=== PATIENT | male | born 1960 | race African-American/Black ===

== ENCOUNTER 2018-12-27 20:58 | Emergency (ER) | payer BC, OTHER ==
--- NOTE | 2018-12-27 21:06 | ED Physician Documentation ---
History of Present Illness - Stated complaint Stated Complaint: LOWER BACK PX - History obtained from History obtained from: Patient - Additonal information Additional information: Patient is a 58-year-old male with history of prostate issues currently awaiting further treatment with radiation presenting with rectal fullness and pain over the past 3-4 days. Patient reports decreased bowel movements and if experiencing a bowel movement, describes it as hard and small. Patient states he has the urge to have a bowel movement, but is struggling to do so. Patient denies actual flank or back pain, abdominal pain, fever, vomiting, urinary changes, as well as any changes to testicles or penis. Patient does admit to nausea.Patient otherwise denies any improving or worsening factors to his symptoms. Review of Systems Constitutional: denies: Fever GI: reports: Constipation. denies: Abdominal Pain PD PAST MEDICAL HISTORY - Past Medical History : Benign prostate hypertrophy - Past Surgical History Past Surgical History: No - Present Medications Home Medications: Ambulatory Orders Medication Instructions Recorded Confirmed Ciprofloxacin [Cipro] 500 mg PO BID #20 tablet 04/02/13 - Allergies Allergies/Adverse Reactions: Allergies Allergy/AdvReac Type Severity Reaction Status Date / Time No Known Drug Allergies Allergy Verified 04/02/13 14:16 - Social History Does the pt smoke?: No Smoking Status: Never smoker Does the pt drink ETOH?: No Does the pt have substance abuse?: No PD ED PE NORMAL - General General: Alert and oriented X 3, No acute distress, Well developed/nourished - HEENT HEENT: Atraumatic, Moist mucous membranes - Cardiac Cardiac: RRR, No murmur - Respiratory Respiratory: No respiratory distress, Clear bilaterally - Abdomen Abdomen: Normal bowel sounds, Soft, Non tender, Non distended - Rectal Rectal: Other (External rectal exam rather unremarkable except for a extremely small non-erythematous, non-thrombosed hemorrhoid that is not tender with palpation. No evidence of anal tears, fissures, or fistulas.No palpable tenderness to rectum, gluteal cleft, or buttocks.) - Back Back: No spinal TTP, Other (No paraspinal muscle tenderness or spasm present.) - Derm Derm: Normal color, Warm and dry, No rash - Neuro Neuro: Alert and oriented X 3, No motor deficit, No sensory deficit - Psych Psych: Normal mood, Normal affect Results - Vitals Vitals: Vital Signs - 24 hr 12/27/18 21:09 Temperature 36.6 C Heart Rate 68 Respiratory 24 Rate Blood Pressure 173/88 H O2 Saturation 99 Oxygen O2 Source Room air PD MEDICAL DECISION MAKING - ED course Complexity details: reviewed results, re-evaluated patient, considered differential, d/w patient, d/w family ED course: Feel the patient's complaints are likely due to heavy stool burden that is causing the sensation of pain and pressure to the rectal area. Also had concern for hemorrhoid, which was present on exam, however, did not appear to be inflamed, clotted, or causing pain. Additionally, did not find evidence of anal tear, fissure, or fistula. Patient does have history of enlarged prostate and is currently awaiting further treatment for prostate issues. Feel that prostate could be contributing to his fullness or pressure sensation. Although, he absolutely denies any penile, testicle, urinary changes as well as any suprapubic or flank tenderness. Given his lack of other abdominal, flank, back pain, do not have high suspicion for renal disease including pyelonephritis or nephrolithiasis, as well as have low suspicion for other intra-abdominal pathology including diverticulitis, small bowel obstruction, appendicitis, AAA, intra-abdominal abscess, but considered. Patient did not have evidence of bony tenderness or paraspinal muscular tenderness to indicate low back sprain or other injury including spinal or spinal cord injury. Discussed likely etiology with patient and his and agreed to obtain x-ray to further evaluate for stool burden. Plain film returned without evidence of significant stool burden, as well as no evidence of free air, obstruction, or other acute pathology. Discussed findings with patient. At this time, do not feel he necessarily requires other invasive testing or further imaging, but I do feel it is worth trying to move his bowels to see if this relieves his complaints. Currently, he is most comfortable with taking medications at home. Plan to provide magnesium citrate for home, as well as discussed nunw-awp-myvarxm options including suppositories and enemas. Finally, discussed return precautions and close follow-up. Patient and voiced understanding and are comfortable with discharge plan. Departure - Departure Disposition: Home, Self Care Clinical Impression: Rectal pain Condition: Good Follow-Up: your,doctor [Other] - Within 3 Days Comments: Please take magnesium citrate as prescribed at home to help induce bowel movement. May also use elzo-lah-tqfvxbz medications such as docusate, MiraLAX, as well as enemas or suppositories to help induce bowel movement. Recommend hydration during this time as you may lose significant fluid from diarrhea. Also recommend healthy diet and follow-up with primary care physician in the next 2-3 days. If you experience worsening pain, rectal bleeding, abdominal pain, vomiting, fever, or other concerns, please return to ED immediately.
--- NOTE | 2018-12-27 22:40 | XRAY Report ---
Reason: constipated, lower rectal pain Procedure Date: 12/27/2018 Accession Number: [id number] / [id number] Procedure: XR - Abdomen 2 View X-Ray CPT Code: 52995 FULL RESULT: EXAM: ABDOMEN RADIOGRAPHY EXAM DATE: 12/27/2018 10:23 PM. CLINICAL HISTORY: Constipated. Lower rectal pain. COMPARISON: None. TECHNIQUE: 2 views. FINDINGS: Lung Bases: Unremarkable. Bowel Gas Pattern: Within normal limits. No dilated loops or abnormal fluid levels. No excessive stool. Free Air: None. Other: No soft tissue calcifications. IMPRESSION: No bowel obstruction, free air, or excessive stool. RADIA
[2018-12-27] MEDS ORDERED: MAGNESIUM CITRATE 296 ML BOTTLE PO STA (22:49)
[2018-12-27 23:07] VITALS: BP 150/84
== END 2018-12-27 23:05 | disposition home or self-care (01) ==
LOC: ED 20:58
DX: K62.89 Other specified diseases of anus and rectum (principal); K64.8 Other hemorrhoids; N40.0 Benign prostatic hyperplasia without lower urinary tract symptoms
CPT/HCPCS: 74019; 99283; A9270

== ENCOUNTER 2019-04-27 08:00 | Outpatient (CLI) | payer BC, OTHER ==
[2019-04-27 19:28] LABS: BILIRUBIN,URINE NEGATIVE (NEGATIVE); GLUCOSE, URINE (UA) NEGATIVE (NEGATIVE); KETONES,URINE (UA) NEGATIVE (NEGATIVE); LEUKOCYTE ESTERASE, URINE NEGATIVE (NEGATIVE); NITRITE,URINE NEGATIVE (NEGATIVE); OCCULT BLOOD,URINE TRACE-INTA (NEGATIVE); PROTEIN,URINE NEGATIVE (NEGATIVE); UROBILINOGEN,URINE 0.2 (NORMAL) E.U./dL (NORMAL)
[2019-04-27 19:36] LABS: BACTERIA,URINE None Seen /HPF (None Seen); CLARITY,URINE CLEAR (CLEAR); CRYSTALS,URINE 11-25 Ca Oxalate /LPF; MUCUS,URINE Few Strands; RBC,URINE 0-5 /HPF (0-5); SQUAMOUS EPITHELIAL CELL,UR FEW Squamous (<= Few)
== END 2019-04-27 23:59 | disposition home or self-care (01) ==
LOC: LAB.R 08:00
PROVIDERS: ATTEND Physician Assistant
DX: R30.0 Dysuria (principal)
CPT/HCPCS: 81001; 87086

== ENCOUNTER 2020-05-10 15:03 | Outpatient (CLI) | payer BC, OTHER ==
--- NOTE | 2020-05-11 08:56 | XRAY Report ---
PROCEDURE: Finger(s) LT INDICATIONS: LEFT THUMB PAIN TECHNIQUE: AP hand, 3 views of the first finger(s) acquired. COMPARISON: None FINDINGS: Bones: No fractures or dislocations. No suspicious bony lesions. Soft tissues: No suspicious soft tissue calcifications. IMPRESSION: No visualized acute fracture or dislocation. However, occult injury cannot be excluded. Recommend chelsy rt interval imaging follow-up in 7-10 days as clinically indicated for additional evaluation. Reviewed by: Anya Schmitt MD on 05/10/2020 4:40 PM PDT Approved by: Anya Schmitt MD on 05/10/2020 4:40 PM PDT Station ID: [id number]
== END 2020-05-10 23:59 | disposition home or self-care (01) ==
LOC: DI.WCP 15:03
PROVIDERS: ATTEND Family Medicine
DX: M79.645 Pain in left finger(s) (principal)
CPT/HCPCS: 73140

== ENCOUNTER 2021-07-19 12:02 | Outpatient (CLI) | payer BC, OTHER ==
[2021-07-19 18:24] LABS: CALCIUM 9.6 mg/dL (8.5-10.3); CREATININE 0.9 mg/dL (0.6-1.2); POTASSIUM 3.8 mmol/L (3.5-5.0)
[2021-07-19 18:47] LABS: PROLACTIN 4.65 ng/mL
[2021-07-19 19:11] LABS: LUTEINIZING HORMONE 6.71 mIU/mL
[2021-07-19 21:07] LABS: ESTIMATED AVERAGE GLUCOSE 137 mg/dL (70-100); HEMOGLOBIN A1c% 6.4 % (4.27-6.07)
== END 2021-07-19 12:03 | disposition home or self-care (01) ==
LOC: LAB.N 12:02
PROVIDERS: ATTEND Internal Medicine
DX: R73.03 Prediabetes (principal); E29.8 Other testicular dysfunction
CPT/HCPCS: 36415; 80048; 83002; 83036; 84146; 84403

== ENCOUNTER 2021-10-21 08:00 | Outpatient (CLI) | payer BC, OTHER ==
[2021-10-21 18:24] LABS: CREATININE,URINE 281.9 mg/dL; MICROALBUM/CREATININE RATIO,UR 5.3 ug/mg (<30.0); MICROALBUMIN,URINE 1.5 mg/dL (0-300.0)
[2021-10-21 18:42] LABS: BASOPHILS % (AUTO) 0.9 %; EOSINOPHILS # (AUTO) 0.1 10^3/uL (0.0-0.7); EOSINOPHILS % (AUTO) 1.5 %; HCT - HEMATOCRIT 43.3 % (42.0-52.0); HGB - HEMOGLOBIN 13.8 g/dL (14.0-18.0); LYMPHOCYTES # (AUTO) 2.5 10^3/uL (1.5-3.5); LYMPHOCYTES % (AUTO) 52.8 %; MEAN CORPUSCULAR HGB CONC 31.9 g/dL (32.0-36.0); MEAN CORPUSCULAR VOLUME 84.7 fL (80.0-94.0); MEAN PLATELET VOLUME 13.3 fL (7.4-11.4); MONOCYTES # (AUTO) 0.4 10^3/uL (0.0-1.0); MONOCYTES % (AUTO) 7.9 %; NEUTROPHILS # (AUTO) 1.7 10^3/uL (1.5-6.6); NEUTROPHILS % (AUTO) 36.7 %; PLT - PLATELET COUNT 209 10^3/uL (130-450); RED BLOOD COUNT 5.11 10^6/uL (4.70-6.10); RED CELL DISTRIBUTION WIDTH 14.1 % (12.0-15.0); WHITE BLOOD COUNT 4.7 x10^3/uL (4.8-10.8)
[2021-10-21 19:28] LABS: ALKALINE PHOSPHATASE 76 IU/L (42-121); ALT ALANINE AMINOTRANSFERASE 39 IU/L (10-60); AST ASPARTATE AMINOTRANSFERASE 32 IU/L (10-42); BILIRUBIN,TOTAL 0.7 mg/dL (0.2-1.0); BUN - BLOOD UREA NITROGEN 13 mg/dL (6-20); CALCIUM 9.4 mg/dL (8.5-10.3); CARBON DIOXIDE - CO2 29 mmol/L (21-32); CHLORIDE 102 mmol/L (101-111); CHOL/HDL RATIO 4.8 (<5.0); CHOLESTEROL 232 mg/dL; GFR - MDRD 92 (>89); GLUCOSE 107 mg/dL (70-100); HDL CHOLESTEROL 48 mg/dL; LDL CHOLESTEROL,CALCULATED 164 mg/dL; LDL/HDL RATIO 3.4 (<3.6); POTASSIUM 4.3 mmol/L (3.5-5.0); SODIUM 139 mmol/L (135-145); TOTAL PROTEIN 8.1 g/dL (6.7-8.2); TRIGLYCERIDES 98 mg/dL; VLDL CHOLESTEROL 20 mg/dL
[2021-10-21 19:58] LABS: THYROID STIMULATING HORMONE 1.61 uIU/mL (0.34-5.60)
[2021-10-21 20:55] LABS: ESTIMATED AVERAGE GLUCOSE 143 mg/dL (70-100); HEMOGLOBIN A1c% 6.6 % (4.27-6.07)
== END 2021-10-21 23:59 | disposition home or self-care (01) ==
LOC: LAB.WCP 08:00
PROVIDERS: ATTEND Internal Medicine
DX: I10 Essential (primary) hypertension (principal); E78.5 Hyperlipidemia, unspecified; E55.9 Vitamin D deficiency, unspecified; R73.03 Prediabetes; F43.22 Adjustment disorder with anxiety
CPT/HCPCS: 36415; 80053; 80061; 82043; 82306; 82570; 83036; 83721; 84443; 85025

== ENCOUNTER 2021-10-21 10:43 | Outpatient (CLI) | payer BC, OTHER ==
--- NOTE | 2021-10-21 11:51 | XRAY Report ---
PROCEDURE: Thoracic Spine 2 View INDICATIONS: BACK PAIN, THORACIC REGION TECHNIQUE: 3 views of the thoracic spine were acquired. COMPARISON: None. FINDINGS: Bones: No fractures or dislocations. No suspicious bony lesions. 12 pairs of ribs are noted, and a ppear intact where visualized. Soft tissues: No paravertebral stripe thickening. IMPRESSION: No evidence acute bony abnormality of the thoracic spine. If clinical suspicion and/or symptoms persist, further assessment with repeat plain films or advanced imaging (e.g., CT, MRI, or bone scan) may be helpful for further assessment. Reviewed by: Vincent Petty MD on 10/21/2021 11:49 AM PST Approved by: Vincent Petty MD on 10/21/2021 11:49 AM PST Station ID: [id number]
== END 2021-10-21 10:44 | disposition home or self-care (01) ==
LOC: DI.N 10:43
PROVIDERS: ATTEND Internal Medicine
DX: M54.6 Pain in thoracic spine (principal); I10 Essential (primary) hypertension; E78.5 Hyperlipidemia, unspecified; E55.9 Vitamin D deficiency, unspecified; R73.03 Prediabetes; F43.22 Adjustment disorder with anxiety
CPT/HCPCS: 36415; 80053; 80061; 82043; 82306; 82570; 83036; 83721; 84443; 85025

== ENCOUNTER 2022-09-20 01:15 | Emergency (ER) | payer BC, OTHER ==
[2022-09-20] MEDS ORDERED: ONDANSETRON ODT 4 MG TABLET ONE (01:40)
[2022-09-20] MEDS ORDERED: ONDANSETRON ODT 4 MG TABLET TL STA (01:48)
[2022-09-20 01:49] LABS: BILIRUBIN,URINE NEGATIVE (NEGATIVE); GLUCOSE, URINE (UA) NEGATIVE (NEGATIVE); KETONES,URINE (UA) NEGATIVE (NEGATIVE); LEUKOCYTE ESTERASE, URINE NEGATIVE (NEGATIVE); NITRITE,URINE NEGATIVE (NEGATIVE); OCCULT BLOOD,URINE SMALL (NEGATIVE); PH,URINE 5.5 PH (5.0-7.5); PROTEIN,URINE 30 mg/dL (NEGATIVE); UROBILINOGEN,URINE 0.2 (NORMAL) E.U./dL (NORMAL)
[2022-09-20 01:50] LABS: BASOPHILS % (AUTO) 0.5 %; EOSINOPHILS # (AUTO) 0.1 10^3/uL (0.0-0.7); EOSINOPHILS % (AUTO) 0.9 %; HCT - HEMATOCRIT 43.1 % (42.0-52.0); HGB - HEMOGLOBIN 13.3 g/dL (14.0-18.0); LYMPHOCYTES % (AUTO) 34.1 %; MEAN CORPUSCULAR HEMOGLOBIN 25.9 pg (27.0-31.0); MEAN CORPUSCULAR HGB CONC 30.9 g/dL (32.0-36.0); MEAN CORPUSCULAR VOLUME 83.9 fL (80.0-94.0); MEAN PLATELET VOLUME 10.7 fL (7.4-11.4); MONOCYTES # (AUTO) 0.5 10^3/uL (0.0-1.0); MONOCYTES % (AUTO) 5.4 %; NEUTROPHILS # (AUTO) 5.2 10^3/uL (1.5-6.6); NEUTROPHILS % (AUTO) 58.8 %; PLT - PLATELET COUNT 267 10^3/uL (130-450); RED BLOOD COUNT 5.14 10^6/uL (4.70-6.10); RED CELL DISTRIBUTION WIDTH 13.8 % (12.0-15.0); WHITE BLOOD COUNT 8.8 x10^3/uL (4.8-10.8)
[2022-09-20 01:58] LABS: CLARITY,URINE HAZY (CLEAR)
[2022-09-20 02:07] LABS: BACTERIA,URINE Few /HPF (None Seen); RBC,URINE 0-5 /HPF (0-5); SQUAMOUS EPITHELIAL CELL,UR FEW Squamous (<= Few); WBC,URINE 0-3 /HPF (0-3)
[2022-09-20 02:13] LABS: ALBUMIN/GLOBULIN RATIO 0.9 (1.0-2.2); BILIRUBIN,TOTAL 0.5 mg/dL (0.2-1.0); CALCIUM 9.6 mg/dL (8.5-10.3); CREATININE 1.2 mg/dL (0.6-1.2); POTASSIUM 4.3 mmol/L (3.5-5.0); TOTAL PROTEIN 8.5 g/dL (6.7-8.2)
--- NOTE | 2022-09-20 02:43 | ED Physician Documentation ---
PD HPI ABD PAIN - Stated complaint Stated Complaint: L FLANK PAIN - Chief complaint Chief Complaint: Abd Pain - History obtained from History obtained from: Patient - History of Present Illness Timing - onset: Enter time (18:00), Yesterday Timing - details: Abrupt onset Quality: Pain Location: LLQ Radiation: Left flank Improved by: Other (no ameliorating factors) Worsened by: Other (no exacerbating factors) Associated symptoms: Nausea, Vomiting, Dysuria (mild burning dysuria). No: Fever Similar symptoms before: Has not had sx before Review of Systems Constitutional: denies: Fever GI: reports: Abdominal Pain, Nausea, Vomiting : denies: Dysuria, Frequency, Hematuria PD PAST MEDICAL HISTORY - Past Medical History Past Medical History: Yes : Benign prostate hypertrophy, Kidney stones - Past Surgical History Past Surgical History: No - Present Medications Home Medications: Ambulatory Orders Medication Instructions Recorded Confirmed Ondansetron Odt [Zofran Odt] 4 mg TL Q6H PRN #10 tablet 09/20/22 Oxycodone HCl/Acetaminophen 1 - 2 each PO Q6H PRN #14 tablet 09/20/22 [Percocet 5-325 mg Tablet] Tamsulosin [Flomax] 0.4 mg PO DAILY #10 cap 09/20/22 amLODIPine [Norvasc] 5 mg PO DAILY #21 tablet 09/20/22 - Allergies Allergies/Adverse Reactions: Allergies Allergy/AdvReac Type Severity Reaction Status Date / Time No Known Drug Allergies Allergy Verified 09/20/22 01:21 - Social History Does the pt smoke?: No Smoking Status: Never smoker Does the pt drink ETOH?: Yes Does the pt have substance abuse?: No - Immunizations Immunizations are current?: No Immunizations: No immun - POLST Patient has POLST: No PD ED PE NORMAL - Vitals Vital signs reviewed: Yes - General General: Alert and oriented X 3, Well developed/nourished, Other (appears to be in moderate painful distress) - Cardiac Cardiac: RRR, No murmur - Respiratory Respiratory: No respiratory distress, Clear bilaterally - Abdomen Abdomen: Normal bowel sounds, Soft, Non tender, Non distended - Back Back: No CVA TTP Results - Vitals Vitals: Oxygen O2 Source Room air - Labs Labs: Laboratory Tests 09/20/22 09/20/22 09/20/22 01:34 01:34 01:34 WBC 8.8 RBC 5.14 Hgb 13.3 L Hct 43.1 MCV 83.9 MCH 25.9 L MCHC 30.9 L RDW 13.8 Plt Count 267 MPV 10.7 Neut # (Auto) 5.2 Lymph # (Auto) 3.0 [place] # (Auto) 0.5 Eos # (Auto) 0.1 Baso # (Auto) 0.0 Absolute Nucleated RBC 0.00 Nucleated RBC % 0.0 Sodium 138 Potassium 4.3 Chloride 101 Carbon Dioxide 27 Anion Gap 10.0 BUN 19 Creatinine 1.2 Estimated GFR (MDRD) 74 L Glucose 160 H Calcium 9.6 Total Bilirubin 0.5 AST 28 ALT 33 Alkaline Phosphatase 91 Total Protein 8.5 H Albumin 4.0 Globulin 4.5 H Albumin/Globulin Ratio 0.9 L Urine Color LIGHT YELLOW Urine Clarity HAZY Urine pH 5.5 Ur Specific [place] >=1.030 H Urine Protein 30 H Urine Glucose (UA) NEGATIVE Urine Ketones NEGATIVE Urine Occult Blood SMALL H Urine Nitrite NEGATIVE Urine Bilirubin NEGATIVE Urine Urobilinogen 0.2 (NORMAL) Ur Leukocyte Esterase NEGATIVE Urine RBC 0-5 Urine WBC 0-3 Ur Squamous Epith Cells FEW Squamous Urine Bacteria Few Urine Culture Comments NOT INDICATED - Rads (name of study) CT A/P Radiology: Prelim report reviewed, EMP read indepedently, See rad report PD Medical Decision Making - ED course Complexity details: reviewed results, re-evaluated patient, considered differential, d/w patient ED course: presents with symptoms suggestive of renal colic (left-sided) and CT A/P c/w left hydroureter, hydronephrosis, and calculus that is likely at the verge of the UVJ. He is given IV toradol and dilaudid and on reexamination, he is resting and in NAD, reports excellent symptom relief. Results d/w patient, advised to follow up with primary care provider. Return precautions discussed. He is given flomax. He has persistent significantly elevated BP readings during ED stay which only mildly improved once the pain was controlled ; he is given a dose of PO amlodipine for this and rx provided for same. I also provided prescriptions for flomax and percocet. Departure - Departure Disposition: 01 Home, Self Care Clinical Impression: Renal colic, Hypertension Condition: Good Instructions: ED Hypertension New Begin Tx, ED Stone Renal W Colic Prescriptions: Tamsulosin [Flomax] 0.4 mg PO DAILY #10 cap amLODIPine [Norvasc] 5 mg PO DAILY #21 tablet Oxycodone HCl/Acetaminophen [Percocet 5-325 mg Tablet] 1 - 2 each PO Q6H PRN #14 tablet PRN Reason: pain Ondansetron Odt [Zofran Odt] 4 mg TL Q6H PRN #10 tablet PRN Reason: Nausea / Vomiting Comments: The CT scan shows a left-sided kidney stone. Based on where it is located, it is likely to pass within the next day or two. I have electronically sent prescriptions to [facility] in [place] for Percocet (narcotic pain medication), ondansetron (antinausea medication), Flomax (this medication can increase the likelihood of passing the kidney stone as well as decrease the time to passing the stone). Your blood pressures were persistently very elevated during your ER stay. Although they did improve somewhat once the pain was controlled, they remained elevated enough that I will start you on a blood pressure medication and you were given a dose in the emergency department. A prescription for 3 weeks of the blood pressure medication is also been submitted to [facility] in [place]. Follow-up with your primary care provider, next available appointment. If your blood pressure remains elevated, you might need to be continued on the blood pressure medication, possibly on a higher dose if your blood pressure is not controlled. I am prescribing a short course of narcotic pain medication for you. These are potentially dangerous and addictive medications that should be used carefully. These medications may constipate you. Take an olaz-gtn-evmodrb stool softener (docusate) twice daily with plenty of water while taking these medications. If you go 24 hours without a bowel movement, take osxe-kzd-vrbxudd miralax, per package instructions. Do not drink or drive while taking these medications. If you received narcotic or sedating medications while in the emergency department, do not drive for 24 hours. Store this medication in a safe, secure place and out of reach of children. It is a violation of federal law to give or sell this medication to another person or to use in a manner other than prescribed. The ED will not refill narcotic prescriptions, including prescriptions lost or stolen. To dispose of unwanted medications: 1. [facility] at [address] in [place] has a medication drop box. They accept prescription medications (in pill form) Thursday through Thursday 9:00 a.m. to 5:00 p.m. 2. [facility] accepts prescription medications (in pill form only) for disposal year round. Call for more information. 3. Contact the [facility] for the next [facility] sponsored prescription drug collection event. , [phone], or [phone]; Discharge Date/Time: 09/20/22 05:39
[2022-09-20] MEDS ORDERED: HYDROmorphone 1 MG/ML CARPUJECT ONE (02:50)
[2022-09-20] MEDS ORDERED: KETOROLAC 30 MG/ML VIAL ONE (02:51)
[2022-09-20] MEDS ORDERED: HYDROmorphone 1 MG/ML CARPUJECT IVP STA (02:53)
[2022-09-20] MEDS ORDERED: KETOROLAC 15 MG/ML VIAL IVP STA (02:53)
[2022-09-20] MEDS ORDERED: TAMSULOSIN 0.4 MG CAPSULE PO STA (04:00)
[2022-09-20] MEDS ORDERED: amLODIPine 5 MG TABLET PO STA (05:17)
[2022-09-20] MEDS ORDERED: oxyCODONE/ACET 5/325 Prepack 4 PO STA (05:17)
[2022-09-20 05:31] VITALS: BP 178/94
--- NOTE | 2022-09-20 11:45 | CT Report ---
PROCEDURE: ABDOMEN/PELVIS WO INDICATIONS: left flank pain TECHNIQUE: Noncontrast 5 mm thick sections acquired from the diaphragms to the symphysis. 5 mm coronal and sagi ttal reformats were then performed. For radiation dose reduction, the following was used: automated exposure control, adjustment of mA and/or kV according to patient size. COMPARISON: None. FINDINGS: Image quality: Excellent. ABDOMEN: Lung bases: Lung bases are clear. Heart size is normal. Solid organs: Liver and spleen are normal in size. Gallbladder wall does not appear thickened. P ancreas is normal in contours. No adrenal nodules. There is a 3-4 mm stone seen obstructing within the distal most left ureterovesicular junction, as on series 3 image 132. There is associated moderate left-sided hydroureter and hydronephrosis. Moderate left-sided perinephric fat stranding is seen. No nonobstructing stones can be seen on either side. Peritoneum and bowel: Unenhanced bowel loops demonstrate normal wall thickness and caliber. No free fluid or air. A normal appendix is incidentally noted. Nodes and vessels: No retroperitoneal or mesenteric adenopathy by size criteria. Aorta and inferior vena cava are normal in caliber. Miscellaneous: Fat-containing periumbilical hernia. PELVIS: Genitourinary: Bladder wall thickness is normal. Clips are seen adjacent to the prostate. Miscellaneous: No inguinal hernias or adenopathy. Bones: No suspicious bony lesions. No vertebral body compression fractures. IMPRESSION: 3-4 mm obstructing stone seen involving the distalmost left ureterovesicular junction. Left-sided hydroureter and hydronephrosis can be seen, with left-sided perinephric fat stranding. No nonobstructing kidney stones are seen. Additional findings: Fat-containing periumbilical hernia Normal appendix Clips adjacent to the prostate Note: No significant discrepancy from the preliminary report. Reviewed by: Neil Turcios MD on 09/20/2022 10:44 AM [facility] Approved by: Neil Turcios MD on 09/20/2022 10:44 AM [facility] Station ID: [id number]
== END 2022-09-20 05:39 | disposition home or self-care (01) ==
LOC: ED 01:15
DX: N13.2 Hydronephrosis with renal and ureteral calculous obstruction (principal); I10 Essential (primary) hypertension; N40.0 Benign prostatic hyperplasia without lower urinary tract symptoms
CPT/HCPCS: 36415; 74176; 80053; 81001; 85025; 96374; 99283; 99284; A9270; J1170; Q0162; 87086

== ENCOUNTER 2022-12-27 09:26 | Outpatient (CLI) | payer BC, OTHER ==
[2022-12-27 18:50] LABS: BASOPHILS % (AUTO) 0.7 %; EOSINOPHILS # (AUTO) 0.1 10^3/uL (0.0-0.7); EOSINOPHILS % (AUTO) 1.8 %; HCT - HEMATOCRIT 42.3 % (42.0-52.0); HGB - HEMOGLOBIN 13.1 g/dL (14.0-18.0); LYMPHOCYTES # (AUTO) 3.2 10^3/uL (1.5-3.5); LYMPHOCYTES % (AUTO) 57.5 %; MEAN CORPUSCULAR HEMOGLOBIN 26.9 pg (27.0-31.0); MEAN CORPUSCULAR VOLUME 86.9 fL (80.0-94.0); MEAN PLATELET VOLUME 13.4 fL (7.4-11.4); MONOCYTES # (AUTO) 0.4 10^3/uL (0.0-1.0); MONOCYTES % (AUTO) 7.2 %; NEUTROPHILS # (AUTO) 1.8 10^3/uL (1.5-6.6); NEUTROPHILS % (AUTO) 32.6 %; PLT - PLATELET COUNT 299 10^3/uL (130-450); RED BLOOD COUNT 4.87 10^6/uL (4.70-6.10); RED CELL DISTRIBUTION WIDTH 14.5 % (12.0-15.0); WHITE BLOOD COUNT 5.6 x10^3/uL (4.8-10.8)
[2022-12-27 18:53] LABS: ALBUMIN 3.8 g/dL (3.2-5.5); ALBUMIN/GLOBULIN RATIO 0.8 (1.0-2.2); ALKALINE PHOSPHATASE 73 IU/L (42-121); ALT ALANINE AMINOTRANSFERASE 27 IU/L (10-60); AST ASPARTATE AMINOTRANSFERASE 24 IU/L (10-42); BILIRUBIN,TOTAL 0.8 mg/dL (0.2-1.0); BUN - BLOOD UREA NITROGEN 14 mg/dL (6-20); CALCIUM 9.4 mg/dL (8.5-10.3); CARBON DIOXIDE - CO2 27 mmol/L (21-32); CHLORIDE 105 mmol/L (101-111); CHOL/HDL RATIO 4.6 (<5.0); CHOLESTEROL 215 mg/dL; CREATININE 0.9 mg/dL (0.6-1.2); GFR - MDRD 104 (>89); GLUCOSE 96 mg/dL (70-100); HDL CHOLESTEROL 47 mg/dL; LDL CHOLESTEROL,CALCULATED 152 mg/dL; LDL/HDL RATIO 3.2 (<3.6); POTASSIUM 4.5 mmol/L (3.5-5.0); SODIUM 138 mmol/L (135-145); TOTAL PROTEIN 8.3 g/dL (6.7-8.2); TRIGLYCERIDES 79 mg/dL; VLDL CHOLESTEROL 16 mg/dL
[2022-12-27 18:56] LABS: CREATININE,URINE 184.5 mg/dL; MICROALBUM/CREATININE RATIO,UR 6.5 ug/mg (<30.0); MICROALBUMIN,URINE 1.2 mg/dL (0-300.0)
[2022-12-27 19:04] LABS: THYROID STIMULATING HORMONE 1.75 uIU/mL (0.34-5.60)
[2022-12-28 08:09] LABS: ESTIMATED AVERAGE GLUCOSE 143 mg/dL (70-100); HEMOGLOBIN A1c% 6.6 % (4.27-6.07)
== END 2022-12-27 09:27 | disposition home or self-care (01) ==
LOC: LAB.N 09:26
PROVIDERS: ATTEND Internal Medicine
DX: I10 Essential (primary) hypertension (principal); Z13.220 Encounter for screening for lipoid disorders; R73.03 Prediabetes; F43.22 Adjustment disorder with anxiety
CPT/HCPCS: 36415; 80053; 80061; 82043; 82570; 83036; 83721; 84443; 85025

== ENCOUNTER 2023-01-14 08:00 | Outpatient (CLI) | payer BC, OTHER | END 2023-01-14 23:59 | disposition home or self-care (01) | LOC: LAB.N 08:00 | PROVIDERS: ATTEND Registered Nurse | DX: R10.9 Unspecified abdominal pain (principal) | CPT/HCPCS: 87086; 87181 ==

== ENCOUNTER 2023-12-29 16:55 | Outpatient (CLI) | payer BC, OTHER ==
[2023-12-29 20:31] LABS: BASOPHILS % (AUTO) 0.6 %; EOSINOPHILS # (AUTO) 0.1 10^3/uL (0.0-0.7); HCT - HEMATOCRIT 43.6 % (42.0-52.0); HGB - HEMOGLOBIN 14.1 g/dL (14.0-18.0); LYMPHOCYTES # (AUTO) 3.1 10^3/uL (1.5-3.5); LYMPHOCYTES % (AUTO) 45.3 %; MEAN CORPUSCULAR HGB CONC 32.3 g/dL (32.0-36.0); MEAN CORPUSCULAR VOLUME 83.5 fL (80.0-94.0); MEAN PLATELET VOLUME 12.1 fL (7.4-11.4); MONOCYTES # (AUTO) 0.4 10^3/uL (0.0-1.0); MONOCYTES % (AUTO) 6.2 %; NEUTROPHILS # (AUTO) 3.2 10^3/uL (1.5-6.6); NEUTROPHILS % (AUTO) 46.8 %; PLT - PLATELET COUNT 300 10^3/uL (130-450); RED BLOOD COUNT 5.22 10^6/uL (4.70-6.10); RED CELL DISTRIBUTION WIDTH 14.1 % (12.0-15.0); WHITE BLOOD COUNT 6.8 x10^3/uL (4.8-10.8)
[2023-12-29 20:46] LABS: ALBUMIN 4.3 g/dL (3.2-5.5); ALBUMIN/GLOBULIN RATIO 1.2 (1.0-2.2); ALKALINE PHOSPHATASE 84 IU/L (42-121); ALT ALANINE AMINOTRANSFERASE 27 IU/L (10-60); AST ASPARTATE AMINOTRANSFERASE 22 IU/L (10-42); BILIRUBIN,TOTAL 0.6 mg/dL (0.2-1.0); BUN - BLOOD UREA NITROGEN 13 mg/dL (6-20); CARBON DIOXIDE - CO2 28 mmol/L (21-32); CHLORIDE 103 mmol/L (101-111); CHOL/HDL RATIO 5.1 (<5.0); CHOLESTEROL 247 mg/dL; CREATININE 0.9 mg/dL (0.6-1.3); GFR - MDRD 103 (>89); GLUCOSE 95 mg/dL (74-104); HDL CHOLESTEROL 48 mg/dL; LDL CHOLESTEROL,CALCULATED 176 mg/dL; LDL/HDL RATIO 3.7 (<3.6); SODIUM 137 mmol/L (135-145); TOTAL PROTEIN 7.8 g/dL (6.4-8.9); TRIGLYCERIDES 115 mg/dL (48-352); VLDL CHOLESTEROL 23 mg/dL
[2023-12-29 20:59] LABS: CREATININE,URINE 265.1 mg/dL; MICROALBUMIN,URINE 4.5 mg/dL
[2023-12-29 21:03] LABS: ESTIMATED AVERAGE GLUCOSE 143 mg/dL (70-100); HEMOGLOBIN A1c% 6.6 % (4.27-6.07)
== END 2023-12-29 16:56 | disposition home or self-care (01) ==
LOC: LAB.N 16:55
PROVIDERS: ATTEND Internal Medicine
DX: C61 Malignant neoplasm of prostate (principal); I10 Essential (primary) hypertension; E78.5 Hyperlipidemia, unspecified; R73.03 Prediabetes
CPT/HCPCS: 36415; 80053; 80061; 82043; 82570; 83036; 83721; 84153; 85025

== ENCOUNTER 2024-01-31 19:56 | Emergency (ER) | payer BC, OTHER ==
--- NOTE | 2024-01-31 20:16 | ED Physician Documentation ---
History of Present Illness - Stated complaint Stated Complaint: - Chief complaint Chief Complaint: UTI - Additonal information Additional information: Patient 63-year-old male with past medical significant for nephrolithiasis,Benign prostatic hypertrophy, essential hypertension presenting to the emergency department with hematuria. Reports recently passed a kidney stone Thursday, approximately 6 days ago. Today developed tesfaye red blood in urine with passage of clots. Denies any symptoms of urinary obstruction. Denies any use of blood thinning medications. Denies any fever or flank pain. Reports the feeling of frequent need to urinate. Denies any night sweats, weight loss Review of Systems Constitutional: denies: Fever Eyes: denies: Loss of vision Ears: denies: Loss of hearing Nose: denies: Rhinorrhea / runny nose Throat: denies: Dental pain / toothache Cardiac: denies: Chest pain / pressure GI: denies: Abdominal Pain : reports: Dysuria, Hematuria PD PAST MEDICAL HISTORY - Past Medical History Past Medical History: Yes : Benign prostate hypertrophy, Kidney stones - Past Surgical History Past Surgical History: No - Present Medications Home Medications: Ambulatory Orders Medication Instructions Recorded Confirmed Cefdinir 300 mg PO BID #20 cap 01/31/24 - Allergies Allergies/Adverse Reactions: Allergies Allergy/AdvReac Type Severity Reaction Status Date / Time No Known Drug Allergies Allergy Verified 01/31/24 20:03 - Social History Does the pt smoke?: No Smoking Status: Never smoker Does the pt drink ETOH?: Yes Does the pt have substance abuse?: No - Immunizations Immunizations are current?: No Immunizations: No immun - POLST Patient has POLST: No PD ED PE NORMAL - General General: Alert and oriented X 3, No acute distress, Well developed/nourished - HEENT HEENT: Atraumatic, PERRL, EOMI - Neck Neck: Supple, no meningeal sign, No bony TTP, No adenopathy - Cardiac Cardiac: RRR, No gallop - Respiratory Respiratory: No respiratory distress - Abdomen Abdomen: Normal bowel sounds, Non tender - Male Male : Deferred - Rectal Rectal: Deferred - Derm Derm: Normal color - Extremities Extremities: No deformity - Neuro Neuro: Alert and oriented X 3, milled rubber tender 2-12 intact, No motor deficit, No sensory deficit, Normal speech Results - Vitals Vitals: Vital Signs - 24 hr 01/31/24 01/31/24 20:03 21:30 Temperature 36.8 C Heart Rate 67 67 Respiratory 16 20 Rate Blood Pressure 160/100 H 173/108 H O2 Saturation 99 98 Oxygen O2 Source Room air - Labs Labs: Laboratory Tests 01/31/24 01/31/24 01/31/24 20:11 20:25 20:25 WBC 7.0 RBC 5.27 Hgb 13.9 L Hct 44.7 MCV 84.8 MCH 26.4 L MCHC 31.1 L RDW 14.0 Plt Count 295 MPV 10.4 Neut # (Auto) 3.1 Lymph # (Auto) 3.1 [place] # (Auto) 0.6 Eos # (Auto) 0.1 Baso # (Auto) 0.1 Absolute Nucleated RBC 0.00 Nucleated RBC % 0.0 PT INR Sodium 139 Potassium 3.8 Chloride 102 Carbon Dioxide 31 Anion Gap 6.0 BUN 14 Creatinine 1.0 Estimated GFR (MDRD) 91 Glucose 129 H Calcium 10.1 Total Bilirubin 0.3 AST 21 ALT 30 Alkaline Phosphatase 94 Total Protein 8.3 Albumin 4.3 Globulin 4.0 Albumin/Globulin Ratio 1.1 Lipase 54 Urine Color RED/BLOODY Urine Clarity TURBID Urine pH 7.0 Ur Specific [place] 1.025 Urine Protein >=300 H Urine Glucose (UA) 100 H Urine Ketones NEGATIVE Urine Occult Blood LARGE H Urine Nitrite POSITIVE H Urine Bilirubin NEGATIVE Urine Urobilinogen 1 (NORMAL) Ur Leukocyte Esterase TRACE H Urine RBC TNTC H Urine WBC 4-5 Ur Squamous Epith Cells RARE Squamous Urine Bacteria None Seen Ur Microscopic Review INDICATED Urine Culture Comments INDICATED 01/31/24 20:35 WBC RBC Hgb Hct MCV MCH MCHC RDW Plt Count MPV Neut # (Auto) Lymph # (Auto) [place] # (Auto) Eos # (Auto) Baso # (Auto) Absolute Nucleated RBC Nucleated RBC % PT 11.6 INR 1.1 Sodium Potassium Chloride Carbon Dioxide Anion Gap BUN Creatinine Estimated GFR (MDRD) Glucose Calcium Total Bilirubin AST ALT Alkaline Phosphatase Total Protein Albumin Globulin Albumin/Globulin Ratio Lipase Urine Color Urine Clarity Urine pH Ur Specific [place] Urine Protein Urine Glucose (UA) Urine Ketones Urine Occult Blood Urine Nitrite Urine Bilirubin Urine Urobilinogen Ur Leukocyte Esterase Urine RBC Urine WBC Ur Squamous Epith Cells Urine Bacteria Ur Microscopic Review Urine Culture Comments PD Medical Decision Making - ED course Complexity details: reviewed results, re-evaluated patient, considered differential, d/w patient ED course: Patient is 63-year-old male presenting to the emergency department chief complaint hematuria. This is in setting known history of prostate cancer and radiation therapy to the prostate several years ago as well as recent passage of a kidney stone. Patient afebrile, he medically stable. He denies flank pain, fever, nausea, vomiting, abdominal pain. Tesfaye red blood noted on UA. Urine analysis positive for leukocyte esterase and nitrates. Negative for white blood cells. RBCs too numerous to count. Normal coagulation study, no indications acute blood loss anemia, renal failure. Patient's urine analysis did have some proteinuria and he was notably hypertensive here in the emergency department however he does report that he has a known history of hypertension and has not been taking his hydrochlorothiazide- lisinopril for several weeks. CT pyelogram is performed which does not show any clear source or site of bleeding. Patient was offered catheter in the emergency department which He declined. Was encouraged to allow us to place catheter for bladder flushes which she was adamant that he did not wish. Was able to micturate in the emergency department with only minimal 8 mL postvoid residual on bladder scan. Does not appear to be actively obstructed at this time and verbalized understanding of the potential risk for obstruction in setting of gross hematuria. All findings discussed in detail with the patient. He states he is not currently following with urologist and I will refer him to Dr. Carter for follow-up. Although his urine analysis is positive for nitrates and leukocyte esterase it is negative for white blood cells and I believe that the possibility of Infection is low in this setting however I will send his urine for culture. I discussed these findings with him and at this time his wish would be to begin a course of antibiotics to treat for any possible infection that could be Contributing to his symptoms. He is given dose Rocephin in the emergency department and discharged on course of Omnicef. Discussed importance of prompt return to the emergency department for any symptoms that would be concerning for blood loss anemia such as heart palpitations, shortness of breath with exertion, lightheadedness. Discussed importance of return to the emergency department for any symptoms that would be concerning for acute bladder outlet obstruction. I discussed importance of taking his blood pressure medications at home regularly. Otherwise clear return precautions, follow-up instructions given prior to disc harge. Departure - Departure Disposition: 01 Home, Self Care Clinical Impression: Hematuria Qualifiers: Hematuria type: gross Qualified Code(s): R31.0 - Gross hematuria Follow-Up: Steven Carter MD [Provider Admit Priv/Credential] - Prescriptions: Cefdinir 300 mg PO BID #20 cap Comments: Thank you for allowing us to care for you today at [facility]. Medication sent electronically to [facility]. Today in the emergency department you were evaluated for gross hematuria or blood in urine. As we discussed the test in the emergency department today overall were fairly reassuring. There is no indications obstruction at this time or severe blood loss. He did have some indications of infection and we will send your urine for culture. You were started on a course of antibiotics here in the emergency department. You are offered Vasquez catheter placement in order to allow for easier drainage of fluid and decrease risk for outlet obstruction which you have declined. It is important that you follow-up with your primary care doctor concerning your ER visit. It also like you to follow-up with a urologist. I have included the contact information for Dr. Steven Carter in your discharge instructions. Please call them first thing in the morning in order to arrange for follow-up. If you have new or worsening symptoms such as fever, increased blood in urine, symptoms of lightheadedness, shortness of breath with exertion, chest pain, feelings of syncope or being about to pass out it is important that you return to the emergency department immediately. It is also very important that you return immediately if you find yourself needing to urinate but feel as though you cannot as this can indicate bladder outlet obstruction which can be very dangerous. Again if it anytime you have new or worsening symptoms please return.
[2024-01-31 20:30] LABS: BILIRUBIN,URINE NEGATIVE (NEGATIVE); GLUCOSE, URINE (UA) 100 mg/dL (NEGATIVE); KETONES,URINE (UA) NEGATIVE (NEGATIVE); LEUKOCYTE ESTERASE, URINE TRACE (NEGATIVE); NITRITE,URINE POSITIVE (NEGATIVE); OCCULT BLOOD,URINE LARGE (NEGATIVE); PROTEIN,URINE >=300 mg/dL (NEGATIVE); UROBILINOGEN,URINE 1 (NORMAL) E.U./dL (NORMAL)
[2024-01-31 20:32] LABS: BACTERIA,URINE None Seen /HPF (None Seen); CLARITY,URINE TURBID (CLEAR); RBC,URINE TNTC /HPF (0-5); SQUAMOUS EPITHELIAL CELL,UR RARE Squamous (<= Few)
[2024-01-31 20:33] LABS: BASOPHILS # (AUTO) 0.1 10^3/uL (0.0-0.1); BASOPHILS % (AUTO) 0.7 %; EOSINOPHILS # (AUTO) 0.1 10^3/uL (0.0-0.7); EOSINOPHILS % (AUTO) 1.4 %; HCT - HEMATOCRIT 44.7 % (42.0-52.0); HGB - HEMOGLOBIN 13.9 g/dL (14.0-18.0); LYMPHOCYTES # (AUTO) 3.1 10^3/uL (1.5-3.5); LYMPHOCYTES % (AUTO) 44.7 %; MEAN CORPUSCULAR HEMOGLOBIN 26.4 pg (27.0-31.0); MEAN CORPUSCULAR HGB CONC 31.1 g/dL (32.0-36.0); MEAN CORPUSCULAR VOLUME 84.8 fL (80.0-94.0); MEAN PLATELET VOLUME 10.4 fL (7.4-11.4); MONOCYTES # (AUTO) 0.6 10^3/uL (0.0-1.0); MONOCYTES % (AUTO) 7.9 %; NEUTROPHILS # (AUTO) 3.1 10^3/uL (1.5-6.6); NEUTROPHILS % (AUTO) 45.2 %; PLT - PLATELET COUNT 295 10^3/uL (130-450); RED BLOOD COUNT 5.27 10^6/uL (4.70-6.10)
[2024-01-31 20:46] LABS: ALBUMIN 4.3 g/dL (3.2-5.5); ALBUMIN/GLOBULIN RATIO 1.1 (1.0-2.2); BILIRUBIN,TOTAL 0.3 mg/dL (0.2-1.0); CALCIUM 10.1 mg/dL (8.5-10.3); POTASSIUM 3.8 mmol/L (3.5-4.5); TOTAL PROTEIN 8.3 g/dL (6.4-8.9)
[2024-01-31 20:46] LABS: INR 1.1 (0.8-1.2); PT - PROTHROMBIN TIME 11.6 secs (9.9-12.6)
[2024-01-31] MEDS ORDERED: iohexoL-300 150 ML BOTTLE ONE (21:59)
[2024-01-31] MEDS: hydroCHLOROthiazide 25 MG TABLET PO STA (22:21)
[2024-01-31] MEDS: lisinopriL 5 MG TABLET PO STA (22:21)
[2024-01-31] MEDS: iohexoL-300 150 ML BOTTLE IVP ONE (22:34)
--- NOTE | 2024-01-31 23:01 | CT Report ---
PROCEDURE: IVP INDICATIONS: Gross hematuria, unknown cause CONTRAST: 150 ML OMNI 300 TECHNIQUE: A [address] of the abdomen and pelvis was performed. Non-contrast and contrast images were recorded and evaluated at appropriate window settings. Images were recorded and evaluated at appropriate windo w settings. Reformats: coronal and sagittal. For radiation dose reduction, the following was used: au tomated exposure control, adjustment of convex left scoliosis. 3 interval casting with improved align ment at the tibia and fibula fractures. MA and/or kV according to patient size. COMPARISON: 09/20/2022 FINDINGS: Image quality: Diagnostic Lower chest: Possible mild groundglass opacity in the medial right lower lobe, which may be infectiou s/inflammatory. No pleural effusions. Normal heart size where visualized Liver: Unremarkable Gallbladder and biliary system: No biliary ductal dilation. Unremarkable gallbladder Pancreas: No ductal dilation Spleen: Nonenlarged Adrenals: No discrete nodule Kidneys: Subcentimeter lesions are too small to characterize, usually cysts. No complicated cystic le jyoti identified. No solid renal mass. No obstructing stone. No hydronephrosis Vessels and lymph nodes: The main portal vein appears patent. No abdominal aortic aneurysm. No pathol ogic lymph nodes by size criteria. Bowel and peritoneum: No evidence of small bowel obstruction. No pathologic ascites or drainable absc ess. There is mild rectal wall thickening. Normal diameter appendix. Body wall: Small fat and bowel containing wide neck umbilical hernia. Pelvis: The bladder is underdistended, but appears thick-walled and not well evaluated on this study. No discrete stones. There are prostate radiation markers. Prostate is not well evaluated on this haydee dy. Bones: Degenerative changes. Sacroiliac ankylosis. IMPRESSION: No significant upper tract disease identified on CT IVP. Bladder is underdistended, but likely with wall thickening. Correlate with urinalysis for infection. In the setting of hematuria, consider also cystoscopy to evaluate the lower tracts. Possible mild pulmonary groundglass opacity in the medial portion of the right lower lobe, which may be infectious/inflammatory. Mild rectal wall thickening may be an artifact of under distention versus proctitis. Consider also ag e-appropriate colonoscopy correlation. Other findings as above. Reviewed by: Amaury Etienne MD on 01/31/2024 10:59 PM PDT Approved by: Amaury Etienne MD on 01/31/2024 10:59 PM PDT Station ID: [id number]
[2024-01-31] MEDS: cefTRIAXone 1 GM VIAL IVP STA (23:31)
[2024-02-01 00:10] VITALS: BP 172/94; O2SAT 99
== END 2024-02-01 00:02 | disposition home or self-care (01) ==
LOC: ED 19:56
DX: R31.0 Gross hematuria (principal); I10 Essential (primary) hypertension; T50.2X6A Underdosing of carbonic-anhydrase inhibitors, benzothiadiazides and other diuretics, initial encounter; T46.4X6A Underdosing of angiotensin-converting-enzyme inhibitors, initial encounter; Z87.442 Personal history of urinary calculi; Z85.46 Personal history of malignant neoplasm of prostate
CPT/HCPCS: 36415; 74178; 80053; 81001; 83690; 85025; 85610; 87086; 96374; 99284; A9270; 81003

== ENCOUNTER 2024-02-26 12:50 | Outpatient (CLI) | payer BC, OTHER ==
--- NOTE | 2024-02-26 13:21 | Sleep Patient Instructions ---
Sleep Center Visit Summary - Patient Visit Information Reason for Visit: initial consult - Patient Instructions Additional Instructions: You will continue with CPAP therapy with pressure set at 9-12 cmH2O. A supply prescription will be updated with your DME. I have added an order to update your PAP machine. Please call the office to schedule a compliance follow up once you get your new device. We encourage you to continue to try to lose weight. Please follow up with the sleep care office one month after obtaining new device. - Clinic Information Contact: [facility] [address] [place] [email or web address] T: [phone]
--- NOTE | 2024-02-26 13:29 | SLEEP CARE CONSULTATION ---
Information from patient questionnaire entered by Luiza Avalos. I have reviewed and concur with the information entered by Luiza Avalos. This document represents the service I personally performed and the decisions made by me, Kelli Bonner ARNP. History of Present Illness Service Date and Time: 02/26/2024 1250 Reason for Visit: New patient, Previously diagnosed sleep apnea, sleep apnea on CPAP therapy Chief Complaint: reports: Unrefreshed sleep, Snoring, Other (UPDATE SUPPLIES) Usual bedtime: 2200 Time it takes to fall asleep: APPROX 20 MINS Snores at night: Yes Observed to quit breathing while asleep: Yes Sleeps alone due to snoring: No Number of times waking at night: 1-2 Reasons for waking at night: reports: Bathroom Toss, Turn, or Twitch while sleeping: Yes Recalls having dreams: Yes Usually gets out of bed at: 0400 Feels refreshed in the morning: No Morning headache: No Sleepy or fatigued during the day: Yes Ever fallen asleep while driving: Yes Takes day naps: Yes Dreams during day naps: No Prior sleep studies: Yes Year and Where: 2013 [facility] Additional HPI information: KATHERINE CORNEJO was previously diagnosed to have severe, AHI 49.1, obstructive sleep apnea-hypopnea syndrome as seen in sleep study done 10/21/2013 at [facility] in [place], [place] and comes in today to establish care for CPAP therapy. He is here because his machine is running louder and the pressure does not feel as strong as it used to be. - Parasomnia Symptoms Ever been unable to move upon waking from sleep: No Walks in sleep: No Talks in sleep: No Ever acted out dreams in sleep: No Ever felt weak in the knees when startled or emotional: No Bothered by creepy, crawly, restless sensations in legs: No Problems with memory or concentration: No CPAP Compliance Data - Data Reviewed with Patient Average duration of nightly device use: 6 hours 3 minutes Compliance rate %: 100 (/ days used) Current pressure setting (cmH2O): 9-12 Average residual AHI: 0.6 Central apnea: 0 Obstructive apnea: 0.2 Hypopnea: 0.1 Average large leak: 0 L/min Compliance data discussion: He has an S9 [employer] machine that was set up on 11/07/2013. He has been getting his supplies from [employer]. He is using a full face mask. His machine is working but is getting louder and feels like it is producing less air. Subjective Patient concerns: reports: air blowing in eyes (occasional). denies: aerophagia, mask discomfort, mask leak noise, condensation in mask/hose, nasal congestion, dry mouth, nose, throat, epistaxis Observed to snore while using device: No Current pressure setting perceived as: comfortable On therapy, patient: reports: sleeping better, awakening more refreshed, being more awake and alert during the day, more rested overall. 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 Patient is and lives in [place]. Have you smoked in the past 12 months: No Alcohol use: Yes Alcohol amount and frequency: 1-2 drinks every 2-3 months Caffeine amount and frequency: coffee 1-2 times a week Family History Family history of sleep disordered breathing: No Allergies and Home Medications Known drug allergies: No Drug allergies reviewed: Yes Home medication list reviewed: Yes (pt to bring in med list) Allergy and home medication list: Allergies No Known Drug Allergies Allergy (Verified 02/24/24 11:45) Review of Systems Weight gain over past 5 years: 5 Cardiovascular: reports: high blood pressure Respiratory: denies: sputum production Gastrointestinal: denies: heartburn Urinary: reports: incontinence, urgency Neurological: denies: headaches Psychiatric: denies: anxiety, depression Ear/Nose/Throat: denies: tonsillectomy Endocrine: denies: thyroid disease Physical Exam Vital signs obtained and entered by: LUIZA Das MA Blood Pressure: 171/99 (RIGHT ARM) Cuff size: long Heart Rate: 86 O2 Saturation: 98 Height: 6 ft Weight: 266 lb 12.8 oz Body Mass Index: 36.1 BMI Classification: Obese Neck circumference: 18.75 Nostrils: patent to airflow Mouth and throat: narrow oropharynx Soft palate: normal Hard palate: normal Uvula: normal Uvula visualization: 100% Mallampati Class I Tongue: enlarged in size with teeth sorenson on lateral edges Tonsils: 1+ Neck: normal w/o lymphadenopathy or thyromegaly Heart: regular rate and rhythm Lungs: clear bilaterally Impression and Plan 1. Obstructive Sleep Apnea-Hypopnea Syndrome, severe, with good treatment compliance and good apnea control. On CPAP therapy, the patient has better sleep quality and is more rested overall. He last received his CPAP in 2013 when he was initially diagnosed at [facility]. The patients CPAP is over 5 years old and of reasonable use. In addition, it is starting to make louder noise, a sign of malfunction. Thus, the CPAP will be updated. A DWO prescription will be made. Compliance guidelines for new device and follow up discussed. I a new sleep study is needed, since his last sleep study was in 2013, than it will be completed by patient. Patient's apnea severity and rationale for treatment to reduce apnea, improve sleep quality and reduce cardiovascular and cerebrovascular events was reviewed. I also reviewed the benefit of consistent device use of CPAP for hypertension. 2. Obesity, unspecified. Currently patients BMI is 36.1. Obesity increases the risk of apnea, CPAP pressure requirements and overall health risks especially cardiovascular and diabetes. Thus patient is advised to lose weight. * Continue auto CPAP pressure at 9-12 cmH2O * Update machine * Update supply prescription. * Notify me if snoring with mask or feeling that the pressure is too much or too little * Attempt to lose weight * Call this office if any problems using CPAP * Return for follow up one month after obtaining new device, or sooner if concerns arise Counseling Topics: Spare mask, Weight loss health impact Prescriptions: Auto CPAP, Device supplies Plan: new device compliance Visit Type: In Office Time Spent with Patient (minutes): 32 Provider Statement: I spent 100% of the Face to Face Visit with the patient with greater than 50% spent counseling the patient and coordination of care.
[2024-02-26 13:41] VITALS: BP 171/99; O2SAT 98
== END 2024-02-26 12:51 | disposition home or self-care (01) ==
LOC: SC 12:50
PROVIDERS: ATTEND Nurse Practitioner Family
DX: G47.33 Obstructive sleep apnea (adult) (pediatric) (principal); E66.9 Obesity, unspecified; Z68.36 Body mass index [BMI] 36.0-36.9, adult
CPT/HCPCS: 99203; 99212